=== PATIENT | female | born 1975 | race Caucasian/White ===

== ENCOUNTER 2021-01-22 05:29 | Observation (INO) | payer BC ==
[2021-01-15 15:39] VITALS: BMI 29.0
[2021-01-18 10:55] LABS: Hemoglobin 15.5 g/dL (12.0-15.5); Mean Corpuscular HGB CONC 33.9 g/dL (32.0-36.0); Mean Corpuscular Hemoglobin 31.5 pg (27.0-33.0); Mean Corpuscular Volume 92.9 fl (81.6-98.3); Mean Platelet Volume 9.9 fl (7.4-10.4); Platelet Count 301 10x3/uL (150-450); RBC Distribution Width 12.8 % (11.5-14.5); Red Blood Cell (RBC) Count 4.92 10x6/uL (3.90-5.03); White Blood Cell (WBC) Count 8.1 10x3/uL (3.5-10.5)
[2021-01-18 11:00] LABS: ALT (SGPT) 16 U/L (8-55); AST (SGOT) 15 U/L (5-34); Albumin 4.2 g/dL (3.5-5.0); Alkaline Phosphatase 66 U/L (40-110); Anion Gap 12 mmol/L (10-20); BUN (Urea Nitrogen) 10 mg/dL (7.0-18.7); Bilirubin, Total 0.4 mg/dL (0.2-1.2); Calc. Creatinine Clearance 0 mL/min (70-130); Carbon Dioxide 24 mmol/L (22-29); Chloride 107 mmol/L (98-107); Globulin 2.6 g/dL (2.4-3.5); Glucose 110 mg/dL (70-105); Protein, Total 6.8 g/dL (6.0-8.3); Sodium 139 mmol/L (136-145)
[2021-01-18 11:06] LABS: BHCG - Serum Negative (NEGATIVE); Pregs Control Background? CLEAR/WHITE (CLR/WHITE); Pregs Control Bar Appear? YES (CONTROL BAR)
[2021-01-18 23:17] LABS: SARS-CoV-2 PCR by NAA Not Detected (NotDetected)
[2021-01-22] MEDS ORDERED: Lidocaine 1% MPF 2 ML VIAL ONE (06:15)
[2021-01-22] MEDS ORDERED: Midazolam HCl 2 mg/2 ml Vial ONE ×2 (06:37→07:17)
[2021-01-22] MEDS ORDERED: Famotidine/PF 20 mg/2ml Vial ONE (06:37)
[2021-01-22] MEDS ORDERED: Ondansetron PF 4 MG/2 ML Vial ONE (06:49)
[2021-01-22] MEDS ORDERED: PROPOFOL 40 ML ONE (06:49)
[2021-01-22] MEDS ORDERED: Rocuronium Bromide 10 MG/ML (10ML VIAL) ONE (06:49)
[2021-01-22] MEDS ORDERED: Glycopyrrolate 0.2 MG/ML 5 ML SYRINGE ONE (06:49)
[2021-01-22] MEDS ORDERED: Metoclopramide HCl 10 MG/2 ML VIAL ONE (06:49)
[2021-01-22] MEDS ORDERED: Lidocaine 1% PF 5 ML VIAL ONE (06:49)
[2021-01-22] MEDS ORDERED: Fentanyl 250 MCG/5 ML VIAL ONE (06:49)
[2021-01-22] MEDS ORDERED: Dexamethasone 4 mg/ml Vial ONE (06:49)
[2021-01-22] MEDS ORDERED: Ketorolac Tromethamine 30 MG/ML VIAL ONE (06:50)
[2021-01-22] MEDS ORDERED: Succinylcholine 200 MG/10 ml SYRINGE FS ONE (07:08)
[2021-01-22] MEDS ORDERED: Morphine 10 MG/ML VIAL ONE (07:41)
[2021-01-22] MEDS ORDERED: PHENYLEPHRINE-NS 100 MCG/ML 10 ML SYRINGE ONE (07:52)
[2021-01-22] MEDS ORDERED: Estradiol 0.05mg/24 Hour Patch (Weekly) ONE (09:49)
[2021-01-22] MEDS ORDERED: HYDROcodone/Acetaminophen 5/325 mg Tablet PO PRN ×2 (10:39→10:40)
[2021-01-22] MEDS ORDERED: diphenhydrAMINE 25 MG CAP PO PRN (10:45)
[2021-01-22] MEDS ORDERED: Dextrose 5%-Lactated Ringers 1,000 ML IV SCH (10:45)
[2021-01-22] MEDS ORDERED: Promethazine HCl 25 MG/ML VIAL IM PRN (10:45)
[2021-01-22] MEDS ORDERED: Simethicone Chewable 80 MG TAB PO PRN (10:45)
[2021-01-22] MEDS ORDERED: Bisacodyl 10 MG SUPP PR PRN (10:45)
[2021-01-22] MEDS ORDERED: Estradiol 0.05mg/24 Hour Patch (Weekly) TD SCH (11:00)
[2021-01-22] MEDS: Acetaminophen 500 MG TAB PO SCH ×3 (11:01→23:00)
[2021-01-22] MEDS: Ondansetron PF 4 MG/2 ML Vial IVP PRN ×2 (14:18→20:34)
[2021-01-22] MEDS: Ketorolac Tromethamine 30 MG/ML VIAL IVP SCH ×2 (14:35→20:32)
[2021-01-23] MEDS ORDERED: fentaNYL Citrate/PF PCA SYRING 50 ML IV PRN (01:00)
[2021-01-23] MEDS ORDERED: Naloxone HCl 0.4 mg/ml Vial IV PRN ×2 (01:03→01:05)
[2021-01-23] MEDS ORDERED: Ondansetron PF 4 MG/2 ML Vial IVP PRN ×2 (01:03→08:15)
[2021-01-23] MEDS ORDERED: diphenhydrAMINE 50 MG/ML VIAL IVP PRN (01:03)
[2021-01-23] MEDS: Ketorolac Tromethamine 30 MG/ML VIAL IVP SCH ×3 (01:46→08:43)
[2021-01-23] MEDS: Acetaminophen 500 MG TAB PO SCH ×2 (05:02→10:27)
[2021-01-23 07:44] VITALS: BP 120/69; TEMP 97.7
[2021-01-23] MEDS ORDERED: Acetaminophen 500 MG TAB PO PRN (08:14)
[2021-01-23] MEDS ORDERED: Simethicone Chewable 80 MG TAB PO PRN (08:15)
[2021-01-23] MEDS ORDERED: diphenhydrAMINE 25 MG CAP PO PRN (08:15)
[2021-01-23] MEDS ORDERED: Promethazine HCl 25 MG/ML VIAL IM PRN (08:15)
[2021-01-23] MEDS ORDERED: Estradiol 0.05mg/24 Hour Patch (Weekly) TD SCH (08:15)
[2021-01-23] MEDS ORDERED: Dextrose 5%-Lactated Ringers 1,000 ML IV SCH (08:15)
[2021-01-23] MEDS ORDERED: Bisacodyl 10 MG SUPP PR PRN (08:15)
[2021-01-23] MEDS ORDERED: HYDROcodone/Acetaminophen 5/325 mg Tablet PO PRN (08:22)
[2021-01-23] MEDS: HYDROcodone/Acetaminophen 5/325 mg Tablet PO PRN ×2 (08:38→10:03)
[2021-01-23] MEDS ORDERED: Ketorolac Tromethamine 30 MG/ML VIAL IVP SCH (12:00)
[2021-01-24] MEDS ORDERED: Ibuprofen 800 MG TAB PO SCH ×2 (01:00→06:00)
== END 2021-01-23 11:36 | disposition home or self-care (01) ==
LOC: CSHSDC 05:29 → CSHPED 10:24 → INTOOBSV 10:24
PROVIDERS: ADMIT Obstetrics & Gynecology; ATTEND Obstetrics & Gynecology
PROC: 0UT90ZZ Resection of Uterus, Open Approach (ICD-10-PCS; principal; 2021-01-22)
PROC: 0UT20ZZ Resection of Bilateral Ovaries, Open Approach (ICD-10-PCS; 2021-01-22)
PROC: 0UT70ZZ Resection of Bilateral Fallopian Tubes, Open Approach (ICD-10-PCS; 2021-01-22)
DX: D25.9 Leiomyoma of uterus, unspecified (principal); N80.0 Endometriosis of uterus; N88.8 Other specified noninflammatory disorders of cervix uteri; D27.0 Benign neoplasm of right ovary; N83.292 Other ovarian cyst, left side; E03.9 Hypothyroidism, unspecified; F17.210 Nicotine dependence, cigarettes, uncomplicated; E78.5 Hyperlipidemia, unspecified; Z79.899 Other long term (current) drug therapy; Z88.1 Allergy status to other antibiotic agents; Z91.048 Other nonmedicinal substance allergy status; Z97.5 Presence of (intrauterine) contraceptive device
CPT/HCPCS: 36415; 80053; 84703; 85014; 85018; 85027; 86850; 86900; 86901; 88112; 88305; 88307; J0690; J1100; J1885; J2250; J2270; J2405; J2704; J2765; J3010; S0028; U0003; U0005